=== PATIENT | female | born 1975 | race Caucasian/White ===

== ENCOUNTER 2018-07-17 10:25 | Emergency (ER) | payer OTHER ==
--- OUTSIDE RECORDS SUMMARY | 2018-07-17 10:27 | XMS REPORT ---
:1975 Author Organization eClinicalWorks Care Team Providers Name Role Phone Luana Leyva Provider Role Unavailable Allergies No Known Allergies Problems Problem Type Condition Code Onset Dates Condition Status Problem Abnormal heart rhythm I49.9 Active Problem High cholesterol E78.00 Active Problem Depression F32.9 Active Problem Morbid obesity E66.01 Active Problem Anxiety F41.9 Active Problem Morbid (severe) obesity due to E66.01 Active excess calories Problem Body mass index (BMI) of 45.0-49.9 Z68.42 Active in adult Problem Memory problem R41.3 Active Problem Swelling R60.9 Active Medications No Known Medications Results No Known Results Summary Purpose eClinicalWorks Submission
--- OUTSIDE RECORDS SUMMARY | 2018-07-17 10:27 | XMS REPORT ---
:1975 Author Organization eClinicalWorks Care Team Providers Name Role Phone Luana Leyva Provider Role Unavailable Allergies, Adverse Reactions, Alerts Substance Reaction Event Type N.K.D.A. Info Not Available Non Drug Allergy Problems Problem Type Condition Code Onset Dates Condition Status Problem Abnormal heart rhythm I49.9 Active Problem High cholesterol E78.00 Active Problem Depression F32.9 Active Problem Morbid obesity E66.01 Active Problem Anxiety F41.9 Active Problem Morbid (severe) obesity due to E66.01 Active excess calories Problem Body mass index (BMI) of 45.0-49.9 Z68.42 Active in adult Problem Memory problem R41.3 Active Problem Swelling R60.9 Active Assessment Dietary counseling and surveillance Z71.3 Active Assessment Snoring R06.83 Active Assessment Body mass index (BMI) of 45.0-49.9 Z68.42 Active in adult Assessment Apnea R06.81 Active Assessment Morbid obesity E66.01 Active Assessment Elevated BP without diagnosis of R03.0 Active hypertension Medications Medication Code System Code Instructions Start End Date Status Dosage Date Rose [facility] 44127999804 220 MG Orally Active 1 tablet every 12 hrs with food or milk as needed Results No Known Results Summary [facility]
--- OUTSIDE RECORDS SUMMARY | 2018-07-17 10:27 | XMS REPORT ---
[...] R41.3 Active Problem Swelling R60.9 Active Assessment Morbid obesity E66.01 Active Assessment Snoring R06.83 Active Assessment Elevated blood pressure reading in R03.0 Active office without diagnosis of hypertension Assessment Apnea R06.81 Active Medications No Known Medications Results No Known Results Summary Purpose eClinicalWorks Submission
--- OUTSIDE RECORDS SUMMARY | 2018-07-17 10:28 | XMS REPORT ---
:1975 Author Organization eClinicalWorks Care Team Providers Name Role Phone Autumn Luana Provider Role Unavailable Allergies, Adverse Reactions, Alerts Substance Reaction Event Type N.K.D.A. Info Not Available Non Drug Allergy Problems Problem Type Condition Code Onset Dates Condition Status Problem Memory problem R41.3 Active Problem Depression F32.9 Active Problem Morbid obesity E66.01 Active Problem Hypertension, unspecified type I10 Active Problem Swelling R60.9 Active Problem Hypercholesterolemia E78.00 Active Problem Abnormal heart rhythm I49.9 Active Problem Anxiety F41.9 Active Problem Morbid (severe) obesity due to E66.01 Active excess calories Problem Body mass index (BMI) of 45.0-49.9 Z68.42 Active in adult Assessment Morbid obesity E66.01 Active Assessment Hypercholesterolemia E78.00 Active Assessment Hypertension, unspecified type I10 Active Assessment Body mass index (BMI) of 45.0-49.9 Z68.42 Active in adult Medications Medication Code Code Instructions Start End Date Status Dosage System Date Losartan ND 20495238147 25 mg Orally Mar 27, Active 1 tablet Potassium Once a day for 2018 high blood pressure Aleve ND 25602796651 220 MG Orally Active 1 tablet every 12 hrs with food or milk as needed Results No Known Results Summary Purpose eClinicalWorks Submission
--- OUTSIDE RECORDS SUMMARY | 2018-07-17 10:28 | XMS REPORT ---
[...] of 45.0-49.9 Z68.42 Active in adult Medications No Known Medications Results No Known Results Summary Purpose eClinicalWorks Submission
--- OUTSIDE RECORDS SUMMARY | 2018-07-17 10:28 | XMS REPORT ---
:1975 Author Organization eClinicalWorks Care Team Providers Name Role Phone Luana Leyva Provider Role Unavailable Allergies, Adverse Reactions, Alerts Substance Reaction Event Type N.K.D.A. Info Not Available Non Drug Allergy Problems Problem Type Condition Code Onset Dates Condition Status Problem Depression F32.9 Active Problem Body mass index (BMI) of 45.0-49.9 Z68.42 Active in adult Problem Abnormal heart rhythm I49.9 Active Problem Respiratory symptoms R09.89 Active Problem Cough, persistent R05 Active Problem URI, acute J06.9 Active Problem Swelling R60.9 Active Problem Morbid (severe) obesity due to E66.01 Active excess calories Problem Hypertension, unspecified type I10 Active Problem Hypercholesterolemia E78.00 Active Assessment URI, acute J06.9 Active Assessment Strep throat J02.0 Active Assessment Otalgia, bilateral H92.03 Active Problem Left upper lobe pulmonary nodule R91.1 Active Problem Anxiety F41.9 Active Problem Obstructive sleep apnea G47.33 Active Problem Memory problem R41.3 Active Problem Chest x-ray abnormality R93.89 Active Problem Morbid obesity E66.01 Active Medications Medication Code Code Instructions Start End Status Dosage System Date Date Aleve ND 42624823923 220 MG Orally Active 1 tablet every 12 hrs with food or milk as needed Losartan ND 25659208823 25 mg Orally Mar 27, Active 1 tablet Potassium Once a day for 2018 high blood pressure Diflucan ND 49100631888 150 MG Orally 1 Jun 29, Active as tablet now; 2019 directed then repeat after completing abx. Maria Isabelon Perles ND 06756500509 100 mg Orally Jun 29, Jul 09, Active 1 capsule Three times a 2019 2019 as needed day for cough Clarithromycin NDC 59315714637 500 MG Orally Jun 29, Jul 09, Active 1 tablet every 12 hrs 2018 2019 Results Name Result Date Reference Range Unit Abnormality Flag STREP A RAPID Summary Purpose eClinicalWorks Submission
[2018-07-17 12:49] LABS: Absolute Lymphocytes (CBC) 2.5 K/uL (0.7-4.9); Absolute Monocytes 0.7 K/uL (0.1-1.3); Absolute Neutrophil 4.1 K/uL (1.8-8.0); Basophils % 0.7 % (0-1.3); Eosinophils % 4.3 % (0-4.4); Hematocrit 40.4 % (36.0-45.0); Lymphocytes % 32.6 % (15.3-44.8); MPV 9.8 fL (7.6-11.3); Monocytes % 9.4 % (3.3-12.3); RBC Red Blood Cell Count 4.58 M/uL (3.86-4.86)
[2018-07-17 13:01] LABS: Potassium 4.3 mmol/L (3.5-5.1)
[2018-07-17] MEDS ORDERED: METHYLPREDNISOLONE 125 MG INJ ONE (14:27)
--- NOTE | 2018-07-17 15:20 | EDPHYS ---
Physician Documentation [facility] Name: Misty Sifuentes Age: 42 yrs Sex: Female : 1975 Arrival Date: 07/17/2018 Time: 10:29 Bed 6 Private MD: ED Physician Evelio Asher HPI: 07/17 11:18 This 42 yrs old Female presents to ER via Ambulatory with complaints of kdr Shortness Of Breath. 11:18 The patient has shortness of breath at rest, with light activity. Onset: The kdr symptoms/episode began/occurred gradually, 1 month(s) ago. 13:28 Duration: The symptoms are intermittent, with no pattern. The patient's shortness of kdr breath is aggravated by coughing, light activity. 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 - Social history:: Smoking status: Patient/guardian denies using tobacco. - Ebola Screening: : Patient denies travel to an Ebola-affected area in the 21 days before illness onset. ROS: 13:47 Constitutional: Negative for fever, chills, and weight loss, Eyes: Negative for injury, kdr pain, redness, and discharge, ENT: Negative for injury, pain, and discharge, Neck: Negative for injury, pain, and swelling, Cardiovascular: Negative for chest pain, palpitations, and edema, Abdomen/GI: Negative for abdominal pain, nausea, vomiting, diarrhea, and constipation, Back: Negative for injury and pain, : Negative for injury, bleeding, discharge, and swelling, MS/Extremity: Negative for injury and deformity, Skin: Negative for injury, rash, and discoloration, Neuro: Negative for headache, weakness, numbness, tingling, and seizure activity. Psych: Negative for depression, anxiety, suicide ideation, homicidal ideation, and hallucinations, Allergy/Immunology: Negative for hives, rash, and allergies, Endocrine: Negative for neck swelling, polydipsia, polyuria, polyphagia, and marked weight changes, Hematologic/Lymphatic: Negative for swollen nodes, abnormal bleeding, and unusual bruising. 13:47 Respiratory: Positive for cough, with no reported sputum, dyspnea on exertion, shortness of breath, Negative for hemoptysis, orthopnea, pleurisy, sputum production. Exam: 13:47 Constitutional: This is a well developed, well nourished patient who is awake, alert, kdr and in no acute distress. Head/Face: Normocephalic, atraumatic. Eyes: Pupils equal round and reactive to light, extra-ocular motions intact. Lids and lashes normal. Conjunctiva and sclera are non-icteric and not injected. Cornea within normal limits. Periorbital areas with no swelling, redness, or edema. Neck: Trachea midline, no thyromegaly or masses palpated, and no cervical lymphadenopathy. Supple, full range of motion without nuchal rigidity, or vertebral point tenderness. No Meningismus. Chest/axilla: Normal chest wall appearance and motion. Nontender with no deformity. No lesions are appreciated. Cardiovascular: Regular rate and rhythm with a normal S1 and S2. No gallops, murmurs, or rubs. Normal PMI, no JVD. No pulse deficits. Abdomen/GI: Soft, non-tender, with normal bowel sounds. No distension or tympany. No guarding or rebound. No evidence of tenderness throughout. Back: No spinal tenderness. No costovertebral tenderness. Full range of motion. Skin: Warm, dry with normal turgor. Normal color with no rashes, no lesions, and no evidence of cellulitis. MS/ Extremity: Pulses equal, no cyanosis. Neurovascular intact. Full, normal range of motion. Neuro: Awake and alert, GCS 15, oriented to person, place, time, and situation. Cranial nerves II-XII grossly intact. Motor strength 5/5 in all extremities. Sensory grossly intact. Cerebellar exam normal. Normal gait. Psych: Awake, alert, with orientation to person, place and time. Behavior, mood, and affect are within normal limits. 13:47 Respiratory: the patient does not display signs of respiratory distress, Respirations: normal, Breath sounds: Few scattered rales o/w negative. Vital Signs: 10:34 BP 152 / 93; Pulse 92; Resp 28; Temp 97.5; Pulse Ox 98% on R/A; Weight 132.45 kg (R); aj1 Height 5 ft. 11 in. (180.34 cm) (R); Pain 0/10; 13:01 BP 122 / 80; Pulse 78; Resp 24; Pulse Ox 97% ; ms 14:22 BP 130 / 80; Pulse 83; Resp 14; Pulse Ox 98% ; bp 15:40 BP 104 / 72; Pulse 81; Resp 16; Pulse Ox 96% ; bp 10:34 Body Mass Index 40.73 (132.45 kg, 180.34 cm) aj1 MDM: 13:55 Data reviewed: vital signs, nurses notes, lab test result(s), radiologic studies. kdr Counseling: I had a detailed discussion with the patient and/or guardian regarding: the historical points, exam findings, and any diagnostic results supporting the discharge/admit diagnosis, lab results, radiology results, the need for outpatient follow up. 13:55 ED course: The patient continues to have cough. She has has persistent respiratory kdr problems for the past years and has seen several doctors and has been on three different courses of abx in the past month without resolution. 15:19 Patient medically screened. kdr 07/17 11:17 Order name: CBC with Diff; Complete Time: 13:27 kdr 07/17 11:17 Order name: Chem 7; Complete Time: 13:27 kdr 07/17 11:17 Order name: DD; Complete Time: 13:27 kdr 07/17 11:17 Order name: Misc. Order: Obtain prior CXR from [facility] and CT from [facility]; Complete kdr Time: 14:15 07/17 13:55 Order name: CXR XRAY kdr Administered Medications: 14:05 Drug: SOLU-Medrol 125 mg Route: IVP; Site: right hand; bp 15:39 Follow up: Response: No adverse reaction bp Disposition: 07/17/18 15:19 Discharged to Home. Impression: Cough, Bronchitis, not specified as acute or chronic, Chest pain on breathing. - Condition is Stable. - Discharge Instructions: Acute Bronchitis, Adult, Acute Bronchitis, [id number], Cough, Adult, [id number]-tm-[id number]. - Prescriptions for Prednisone 20 mg Oral Tablet - take 2 tablet by ORAL route once daily for 5 days; 10 tablet. Tessalon Perles 100 mg Oral Capsule - take 1 capsule by ORAL route every 8 hours As needed; 15 capsule. - Medication Reconciliation Form, Thank You Letter, Antibiotic Education, Prescription Opioid Use form. - Follow up: Private Physician; When: 2 - 3 days; Reason: If symptoms return, Further diagnostic work-up, Recheck today's complaints, Continuance of care, Re-evaluation by your physician. - Problem is an ongoing problem. - Symptoms are unchanged. - Notes: Continue current antibiotics Signatures: Dispatcher [employer] EDGA Reena Hernandez RN RN aj1 Evelio Asher MD MD [facility] Leti Crespo RN RN Daujan Phillips RN RN bp Corrections: (The following items were deleted from the chart) 15:42 15:19 07/17/2018 15:19 Discharged to Home. Impression: Cough; Bronchitis, not specified hb as acute or chronic; Chest pain on breathing. Condition is Stable. Forms are Medication Reconciliation Form, Thank You Letter, Antibiotic Education, Prescription Opioid Use. Follow up: Private Physician; When: 2 - 3 days; Reason: If symptoms return, Further diagnostic work-up, Recheck today's complaints, Continuance of care, Re-evaluation by your physician. Problem is an ongoing problem. Symptoms are unchanged. kdr
--- NOTE | 2018-07-17 15:20 | ER ---
Nurse's Notes [facility] Name: Misty Sifuentes Age: 42 yrs Sex: Female : 1975 Arrival Date: 07/17/2018 Time: 10:29 Bed 6 Private MD: Diagnosis: Cough;Bronchitis, not specified as acute or chronic;Chest pain on breathing Presentation: 07/17 10:30 Presenting complaint: Patient states: "I've been sick for over a month and I've been to [facility] and then the doctor twice, I've been through 3 rounds of antibiotics and Im not getting better. I had an X-Ray last week and they saw something, and they sent me for a CT scan, but the doctor doesn't have the result yet. I haven't had any fever, but now Im short of breath, I have a horrible cough so my doctor said to come here". Transition of care: patient was not received from another setting of care. Onset of symptoms was May 29, 2018. Risk Assessment: Do you want to hurt yourself or someone else? Patient reports no desire to harm self or others. Initial Sepsis Screen: Does the patient meet any 2 criteria? HR > 90 bpm. No. Patient's initial sepsis screen is negative. Does the patient have a suspected source of infection? Yes: Productive cough/pneumonia. Care prior to arrival: None. 10:30 Method Of Arrival: Ambulatory aj1 10:30 Acuity: HANY 3 aj1 Triage Assessment: 10:34 General: Appears in no apparent distress. uncomfortable, Behavior is calm, cooperative, aj1 appropriate for age. Pain: Denies pain. Neuro: Level of Consciousness is awake, alert, obeys commands. Cardiovascular: Patient's skin is warm and dry. Respiratory: Reports shortness of breath at rest cough that is productive, Airway is patent Respiratory effort is even, Respiratory pattern is tachypnea Onset: The symptoms/episode began/occurred one month ago, the patient has mild shortness of breath. 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 - Social history:: Smoking status: Patient/guardian denies using tobacco. - Ebola Screening: : Patient denies travel to an Ebola-affected area in the 21 days before illness onset. Screenin:13 Abuse screen: Denies threats or abuse. Denies injuries from another. Nutritional bp screening: No deficits noted. Tuberculosis screening: No symptoms or risk factors identified. Fall Risk None identified. Assessment: 10:45 General: Appears in no apparent distress. comfortable, Behavior is calm, cooperative, bp appropriate for age. Pain: Denies pain. Neuro: Level of Consciousness is awake, alert, obeys commands, Oriented to person, place, time, situation, Appropriate for age. Cardiovascular: Rhythm is sinus rhythm. Respiratory: Airway is patent Respiratory effort is even, unlabored, Respiratory pattern is regular, symmetrical, Breath sounds are clear bilaterally. GI: No signs and/or symptoms were reported involving the gastrointestinal system. : No signs and/or symptoms were reported regarding the genitourinary system. EENT: No deficits noted. Derm: No deficits noted. Musculoskeletal: Circulation, motion, and sensation intact. Range of motion: intact in all extremities. 12:00 Reassessment: VS STABLE, RESULTS PENDING. bp 14:00 Reassessment: VS STABLE, PT EXPRESSING RELIEF OF S/S. bp 15:40 Reassessment: PT D/C HOME AMBULATORY WITH FAMILY, DX WITH BRONCHITIS. bp Vital Signs: 10:34 BP 152 / 93; Pulse 92; Resp 28; Temp 97.5; Pulse Ox 98% on R/A; Weight 132.45 kg (R); aj1 Height 5 ft. 11 in. (180.34 cm) (R); Pain 0/10; 13:01 BP 122 / 80; Pulse 78; Resp 24; Pulse Ox 97% ; ms 14:22 BP 130 / 80; Pulse 83; Resp 14; Pulse Ox 98% ; bp 15:40 BP 104 / 72; Pulse 81; Resp 16; Pulse Ox 96% ; bp 10:34 Body Mass Index 40.73 (132.45 kg, 180.34 cm) aj1 ED Course: 10:29 Patient arrived in ED. mr 10:32 Triage completed. aj1 10:34 Arm band placed on Patient placed in an exam room. aj1 10:39 Dajuan Phillips, RN is Primary Nurse. bp 10:54 Evelio Asher MD is Attending Physician. kdr 11:30 Inserted saline lock: 22 gauge in right hand, using aseptic technique. Blood collected. bp 13:13 Patient has correct armband on for positive identification. Placed in gown. Bed in low bp position. Call light in reach. Side rails up X2. 15:06 CXR XRAY In Process Unspecified. EDMS 15:42 No provider procedures requiring assistance completed. IV discontinued, intact, bp bleeding controlled, No redness/swelling at site. Pressure dressing applied. Administered Medications: 14:05 Drug: SOLU-Medrol 125 mg Route: IVP; Site: right hand; bp 15:39 Follow up: Response: No adverse reaction bp Outcome: 15:19 Discharge ordered by . kdr 15:42 Patient left the ED. hb 15:42 Discharged to home ambulatory, with family. bp 15:42 Condition: stable 15:42 Discharge instructions given to patient, Instructed on discharge instructions, follow up and referral plans. medication usage, Demonstrated understanding of instructions, follow-up care, medications, Prescriptions given X 2. Signatures: Dispatcher [employer] EDMS Reena Hernandez RN RN aj1 Evelio Asher MD MD kdr Rivera, Mary LightYamila ms, Heather, RN RN hb Dajuan Phillips, RN RN bp
--- NOTE | 2018-07-17 15:24 | RAD REPORT ---
EXAM DESCRIPTION: RAD - Chest Single View - 07/17/2018 3:06 pm CLINICAL HISTORY: COUGH Chest pain. COMPARISON: Chest Pa And Lat (2 Views) dated 07/09/2018; Chest Single View dated 03/01/2017; CHEST PA AND LAT 2 VIEW dated 08/19/2011 FINDINGS: Portable technique limits examination quality. No focal infiltrate typical of pneumonia seen. A small nodular focus in the left upper lobe appears e ssentially unchanged when considering differences in technique. Please refer to 07/09/2018 radiograph for follow-up recommendations. The heart is normal in size. No displaced fractures. IMPRESSION: No acute intrathoracic process suspected.
== END 2018-07-17 15:42 | disposition home or self-care (01) ==
LOC: ER 10:25
DX: J40 Bronchitis, not specified as acute or chronic (principal); E78.5 Hyperlipidemia, unspecified; I10 Essential (primary) hypertension; Z79.51 Long term (current) use of inhaled steroids
CPT/HCPCS: 36415; 71045; 80048; 85025; 85379; 96374; 99284; J2930

== ENCOUNTER 2024-08-13 06:41 | Day surgery (SDC) | payer BC ==
[2024-08-12 14:24] LABS: Absolute Eosinophils 0.1 K/uL (0-0.5); Absolute Lymphocytes (CBC) 1.6 K/uL (0.7-4.9); Absolute Monocytes 0.3 K/uL (0.1-1.3); Absolute Neutrophil 3.7 K/uL (1.8-8.0); Basophils % 0.7 % (0-1.3); Eosinophils % 1.4 % (0-4.4); Hematocrit 29.7 % (36.0-45.0); Hemoglobin 9.9 g/dL (12.0-15.0); Lymphocytes % 27.4 % (15.3-44.8); MCH 25.9 pg (27.0-35.0); MCHC 33.5 g/dL (32.0-36.0); MCV 77.4 fL (80-100); MPV 10.1 fL (7.6-11.3); Monocytes % 5.8 % (3.3-12.3); Neutrophils % 64.7 % (41.7-73.7); Platelets 272 thou/uL (152-406); RBC Red Blood Cell Count 3.84 M/uL (3.86-4.86); Red Cell Distribution Width 16.8 % (12.1-15.2)
[2024-08-12 14:30] LABS: Anion Gap 9.7 mEq/L (5.0-15.0); Potassium 3.7 mEq/L (3.5-5.1)
[2024-08-13] MEDS ORDERED: Ringers Lactate 1,000 ML IV ONE (07:02)
[2024-08-13] MEDS ORDERED: LIDOCAINE 1% MPF 30 ML VIAL ONE (07:46)
[2024-08-13] MEDS ORDERED: propofoL 200 MG/20 ML VIAL IV ONE (07:47)
[2024-08-13] MEDS ORDERED: GLYCOPYRROLATE 0.2 MG/ML SYR ONE (07:47)
[2024-08-13 08:53] VITALS: TEMP 97
[2024-08-13 09:22] VITALS: BP 121/75; O2SAT 98
--- NOTE | 2024-08-16 12:16 | EKG ---
Test Date: 2024-08-12 Test Time: 14:17:30 Community Mental Health Worker: LIZA MEASUREMENT RESULTS: Intervals: Rate: 57 OH: 154 QRSD: 84 QT: 448 QTc: 436 [place]: P: 70 OH: 154 QRS: 48 T: 40 INTERPRETIVE STATEMENTS: Sinus bradycardia with premature atrial complexes Low voltage QRS Septal infarct, age undetermined Abnormal ECG Compared to ECG 11/05/2017 07:29:14 Atrial premature complex(es) now present Low QRS voltage now present Myocardial infarct finding now present Sinus rhythm no longer present Incomplete right bundle-branch block no longer present Electronically Signed On 08-16-24 12:09:09 PLC ENGINEER by Pato Ayers
== END 2024-08-13 09:05 | disposition home or self-care (01) ==
LOC: OR 06:41
PROVIDERS: ATTEND Surgery
PROC: 0DBN8ZX Excision of Sigmoid Colon, Via Natural or Artificial Opening Endoscopic, Diagnostic (ICD-10-PCS; principal; 2024-08-13 08:00)
DX: Z12.11 Encounter for screening for malignant neoplasm of colon (principal); D12.5 Benign neoplasm of sigmoid colon; K64.8 Other hemorrhoids
CPT/HCPCS: 93005; 85025; 80048; 36415; 84703; 88305; 45385; J2704; J2003; J7120